=== PATIENT | male | born 1990 | race Two or more races ===

== ENCOUNTER 2025-01-01 10:30 | Emergency (ER) | payer BC ==
[~2025-01-01] VITALS: Ht 172.7 cm; Wt 117.9 kg
[2025-01-01 11:54] LABS: BASO % 0.7 % (0.1-1.2); EOS # 0.05 (0.04-0.54); EOS % 1.1 % (0.7-7.0); LYMPH # 1.53 (1.18-3.74); LYMPH % 33.7 % (19.3-53.1); MEAN PLATELET VOLUME 10.60 fl (9.4-12.4); MONO # 0.81 (0.24-0.82); NEUT # 2.11 (1.56-6.13); NEUT % 46.5 % (34.0-71.1); RED CELL DISTRIBUTION WIDTH 14.6 % (11.6-14.4)
[2025-01-01 12:08] LABS: ALT/SGPT 41.0 U/L (12-78); AST/SGOT 22.0 U/L (15-37); BILIRUBIN TOTAL 0.44 mg/dL (0.3-1.2); BUN CREA RATIO 10.0 (7.0-25.0); CREATININE SERUM 1.15 mg/dL (0.70-1.30); GFR 71.95; GLOBULINA 4.7 G/DL (2.4-3.5); GLUCOSE FASTING 94.0 mg/dL (65-100); OSMOLALITY SERUM 286.0 MOSM/KG (275-295)
[2025-01-01 12:11] LABS: MONO % 17.8 % (4.7-12.5)
[2025-01-01 12:12] LABS: EOSINOPHIL MAN 2.0 %; LYMPHOCYTE MAN 30.0 %; MONOCYTE MAN 12.0 %; NEUTROPHILS MAN 56.0 %
[2025-01-01] MEDS ORDERED: VALACYCLOVIR1000 MG PO (15:15)
== END 2025-01-01 15:22 | disposition home or self-care (01) ==
LOC: ER 12:18
PROVIDERS: Preventive Medicine Public Health & General Preventive Medicine
DX: B02.8 Zoster with other complications (principal)